=== PATIENT | female | born 1980 | race Caucasian/White ===

== ENCOUNTER 2019-08-16 16:30 | Emergency (ER) | payer BC, SELFPAY ==
[2019-08-16 17:54] VITALS: BP 118/70; PULSE 93; RESP 20; TEMP 36.6; O2SAT 100
--- NOTE | 2019-08-16 18:22 | ED.GENADULT ---
HPI - General Adult General Chief complaint: Urogenital-Female Stated complaint: Possible Bladder infection Time Seen by Provider: 08/16/19 18:22 Source: patient Mode of arrival: ambulatory Limitations: no limitations History of Present Illness HPI narrative: 38-year-old female patient presents to the [facility] with complaints of urinary symptoms for the past 2 days. Patient states that she does have a history of interstitial cystitis. Patient states it does not feel like a normal flareup. Patient states she has had pain with urination, urgency, frequency and incontinence. Patient states that she did have a vomiting episode once yesterday. Denies any fever but does complain of some low back pain. Related Data Allergies Allergy/AdvReac Type Severity Reaction Status Date / Time vancomycin Allergy Unknown Hives Verified 08/16/19 18:31 KETOROLAC TROMETHAMINE Allergy Mild rash and Uncoded 11/08/18 17:51 nausea CEFAZOLIN SODIUM Allergy Unknown Unknown Uncoded 08/16/19 18:31 ONDANSETRON HCL Allergy Unknown hives Uncoded 11/08/18 17:51 UNKNOWN MEDICATION AdvReac Unknown SEIZURE Uncoded 11/24/16 14:03 Review of Systems Review of Systems: Narrative: CONSTITUTIONAL: Denies fever, chills, or sweats. EYES: Denies visual changes, redness, or discharge. ENT: Denies rhinorrhea, congestion, sore throat, or otalgia. CARDIOVASCULAR: Denies chest pain, palpitations, or edema. RESPIRATORY: Denies cough or dyspnea. GASTROINTESTINAL: Denies abdominal pain, nausea, vomiting, or diarrhea. GENITOURINARY: Positive pain with urination, urgency, frequency, incontinence SKIN: Denies rash or itching. MUSCULOSKELETAL: Positive back pain, joint pain, or myalgia. NEUROLOGIC: Denies headache, numbness, or weakness. PSYCHIATRIC: Denies anxiety or depression. PMFSH Comments At the time of my signature I agree with nursing past medical history, surgical, social, and family history. There is no relevant family history pertinent to the presenting complaint.. Exam Narrative: Exam Narrative: GENERAL: Well-appearing, well-nourished, and in no acute distress. HEAD: Normocephalic, atraumatic. EYES: PERRLA and EOMI. ENT: Nares clear, no rhinorrhea or epistaxis. Mucous membranes moist. NECK: Supple. No lymphadenopathy CHEST: Clear to auscultation. No respiratory distress. HEART: Regular rate and rhythm. No murmur heard. Normal peripheral pulses. ABDOMEN: Soft, nontender, nondistended, normal active bowel sounds. Slight tenderness on CVA percussion EXTREMITIES: Normal range of motion. No edema. SKIN: Warm, dry, no rash. NEURO: No focal deficits. Alert and oriented x3. Course Vital Signs Vital signs: Vital Signs Temperature 36.6 C 08/16/19 17:54 Pulse Rate 93 08/16/19 17:54 Respiratory Rate 20 08/16/19 17:54 Blood Pressure 118/70 08/16/19 17:54 Pulse Oximetry 100 08/16/19 17:54 Temperature 36.6 C 08/16/19 17:54 Pulse Rate 93 08/16/19 17:54 Respiratory Rate 20 08/16/19 17:54 Blood Pressure 118/70 08/16/19 17:54 Pulse Oximetry 100 08/16/19 17:54 Vital signs reviewed. Medical Decision Making Differential Diagnosis Differential Diagnosis: Differential diagnosis: Uncomplicated lower UTI, uncomplicated UTI, pyelonephritis Notify patient that there was nothing on her urine dip noted abnormal. Discussed with patient that since she is symptomatic and does have a history of interstitial cystitis we will go ahead and start her on antibiotics today and see if this improves her symptoms. Discussed with patient we will send her urine off to the lab for culture and if the culture comes back negative for any antibiotics we will call her and tell her to stop the antibiotics. Patient verbalized understanding denies any other questions or concerns at this time. Vital Signs Vital Signs: Vital Signs Temperature 36.6 C 08/16/19 17:54 Pulse Rate 93 08/16/19 17:54 Respiratory Rate 08/16/19 17:54 Blood Pressure 118/70 03/0
== END 2019-08-16 18:35 | disposition home or self-care (01) ==
PROVIDERS: Emergency Provider Nurse Practitioner Family
DX: R30.0 Dysuria (principal)
CPT/HCPCS: 81003; 87086; 99213; G0463

== ENCOUNTER 2020-11-14 14:48 | Emergency (ER) | payer BC, SELFPAY ==
--- NOTE | ~2020-11-14 | XR_ITS ---
XR chest 2V DATE: 11/14/2020 16:09 INDICATION: Dry cough for one day TECHNIQUE: PA and lateral views COMPARISON: 09/24/2018 2 view chest FINDINGS: Bilateral hyperinflation. No pulmonary infiltrate or consolidation, pleural effusion or pul monary vascular congestion or pneumothorax. Normal heart size. No hilar or mediastinal enlargement. Surgical clips overlie the left axillary area. IMPRESSION: Bilateral hyperinflation; no active cardiopulmonary disease. Reviewed, dictated and finalized at location A.
[2020-11-14 14:55] VITALS: BP 126/68; PULSE 105; RESP 20; TEMP 36.8; O2SAT 99
--- NOTE | 2020-11-14 15:14 | ED.FEMALEGU ---
HPI - Female Genitourinary General Chief complaint: Urogenital-Female Stated complaint: Cough, Yeast infection Time Seen by Provider: 11/14/20 15:14 Source: patient Mode of arrival: ambulatory Limitations: no limitations History of Present Illness HPI Narrative: Chiquis Dawson is a 40 yo female with a history of interstitial cystitis and BV, who comes with vaginal itching and small amount of white discharge. She is also concerned that she may have been exposed with the [employer] chemical spill last night she has a light cough. States has had a history of having health problems with pneumonia and bronchitis Related Data Home Medications Medication Instructions Recorded Confirmed hydromorphone 4 mg PO Q4H 11/14/20 11/14/20 oxcarbazepine [Oxtellar XR] 10 mg PO DAILY 11/14/20 11/14/20 Allergies Allergy/AdvReac Type Severity Reaction Status Date / Time vancomycin Allergy Unknown Rash Verified 11/14/20 15:21 CEFAZOLIN SODIUM Allergy Unknown Rash Uncoded 11/14/20 15:21 KETOROLAC TROMETHAMINE Allergy Unknown rash and Uncoded 11/14/20 15:21 nausea ONDANSETRON HCL Allergy Unknown hives Uncoded 11/08/18 17:51 seizure meds Allergy Unknown Uncoded 11/14/20 15:47 Review of Systems Review of Systems: Narrative: CONSTITUTIONAL: Denies fever, chills, sweats. EYES: Denies visual changes, redness, discharge. ENT: Denies rhinorrhea, congestion, sore throat, otalgia. CARDIOVASCULAR: Denies chest pain, palpitations, edema. RESPIRATORY: Denies dyspnea, wheezing, has cough GASTROINTESTINAL: Denies abdominal pain, nausea, vomiting, diarrhea. GENITOURINARY: Denies dysuria, hematuria, abnormal discharge, has white discharge and vaginal itching SKIN: Denies rash or itching. NEUROLOGIC: Denies numbness, or focal weakness. PSYCHIATRIC: Denies anxiety or depression. [facility] Past Medical History Medical History Endometriosis Fibromyalgia Interstitial cystitis Seizures Social History Social History (Updated 11/14/20 @ 15:24 by Nena Nichols CNP) Smoking packs per day: 0.5 Smoking cigarettes per day: 10.0 Smoking status: Current every day smoker Comments At time of signature, I agree with nursing past medical, surgical, social and family history. There is no relevant family history pertinent to the presenting complaint. Exam Narrative: Exam Narrative: GENERAL: This is a well-nourished, well-developed patient, in mild distress. HEAD: normocephalic, atraumatic. EYES: Sclera clear/white. Vision is grossly intact. EARS: External ears normal,Hearing grossly intact. NOSE: External nose normal without nasal discharge, nares without redness, no rhinorrhea. THROAT: Mucous membranes moist, NECK: Neck supple, non-tender CARDIOVASCULAR: Tachycardic rate and rhythm without murmurs, gallops, or rubs. RESPIRATORY: Coarse to auscultation. Breath sounds equal bilaterally. No wheezes, rales, or rhonchi. GASTROINTESTINAL: Abdomen soft, non-tender, : Thin white vaginal discharge in vaginal vault with redness of labia and bhat of vault, no odor noted SKIN: warm, intact with no suspicious lesions or rash, good texture and turgor. NEURO: awake, alert, and oriented to person, place and time. There were no obvious focal neurologic abnormalities. Steady gait EXTREMITIES: Normal range of motion. BACK: Nontender without deformity Course Course Emergency Course: [facility] and [facility] UA-2+ blood trace protein Pelvic exam done-swabs obtained but has white vaginal discharge and erythema Minimal discharge-treat with Flagyl 500 mg 1 twice daily x7 days; Diflucan now and after completion of Flagyl Chest x-ray done for cough-results show bilateral hyperinflation with no active cardiopulmonary disease, normal heart size Give albuterol inhaler, continue to take Zyrtec Vital Signs Vital signs: Vital Signs Temperature 98.2 F 11/14/20 14:55 Pulse Rate 1
== END 2020-11-14 16:35 | disposition home or self-care (01) ==
PROVIDERS: Emergency Provider Nurse Practitioner
DX: R91.8 Other nonspecific abnormal finding of lung field (principal); N76.0 Acute vaginitis; B37.3 Candidiasis of vulva and vagina; F17.210 Nicotine dependence, cigarettes, uncomplicated; N80.9 Endometriosis, unspecified; M79.7 Fibromyalgia
CPT/HCPCS: 71046; 81003; 87086; 99213; G0463